=== PATIENT | female | born 1995 | race Caucasian/White ===

== ENCOUNTER → 2021-05-04 | Outpatient (CLI) | payer BC ==
[~2021-05-04] MED LIST: MIRALAX17 GM PO; PEPCID20 MG PO; ZOFRAN 4 MG TAB4 MG PO; ZOFRAN ODT 4 MG4 MG SL
== END ==
LOC: LAB 14:47
DX: R52 Pain, unspecified (principal)
CPT/HCPCS: 81001; 87086

== ENCOUNTER → 2021-10-03 | Outpatient (CLI) | payer BC | LOC: EXRD 15:15 | DX: M79.605 Pain in left leg (principal) | CPT/HCPCS: 93971 ==